=== PATIENT | male | born 1970 | race African-American/Black ===

== ENCOUNTER → 2020-09-04 | Outpatient (CLI) | payer BC ==
--- NOTE | 2020-09-04 14:50 | 2DMMODE ---
[place] [address] 2 D/M-MODE ECHOCARDIOGRAM Name: HORTENCIA SAMUEL Room: [facility]#: [id number] Admission: 09/04/20 Attend Phys: Hebert Murphy MD Discharge: Date of : 68 Date of Service: 09/04/20 1450 Report #: [id number] THIS REPORT FOR: cc: Hebert Murphy MD, Meng MD Holkins, John M. MD [facility] ~ APPROVED REPORT Study performed: 09/04/2020 12:58:01 EXAM: Comprehensive 2D, Doppler, and color-flow Echocardiogram Patient Location: Out-Patient BSA: 1.93 HR: 72 bpm BP: 115/83 mmHg Other Information Study Quality: Good Indications Dyspnea 2D Dimensions IVSd: 10.27 (7-11mm) LVOT Diam: 20.17 (18-24mm) LVDd: 49.11 mm PWd: 9.64 (7-11mm) Ascending Ao: 26.62 (22-36mm) LVDs: 28.09 (25-40mm) Aortic Root: 27.76 mm Volumes Left Atrial Volume (Systole) LA ESV Index: 17.40 mL/m2 Aortic Valve AoV Peak Bandar.: 1.33 m/s AO Peak Gr.: 7.03 mmHg LVOT Max P.08 mmHg AO Mean Gr.: 3.81 mmHg LVOT Mean P.27 mmHg LVOT Max V: 0.88 m/s AO V2 VTI: 24.56 cm LVOT Mean V: 0.51 m/s IDA (VTI): 2.26 cm2 LVOT V1 VTI: 17.35 cm Mitral Valve E/A Ratio: 1.17 [place] [address] 2 D/M-MODE ECHOCARDIOGRAM Name: HORTENCIA SAMUEL Room: [facility]#: [id number] Admission: 09/04/20 Attend Phys: Hebert Murphy MD Discharge: Date of : 68 Date of Service: 09/04/20 1450 Report #: [id number] MV Decel. Time: 176.12 ms MV E Max Bandar.: 0.65 m/s MV PHT: 51.07 ms MVA (PHT): 4.31 cm2 TDI E/Lateral E': 5.42 E/Medial E': 6.50 Medial E' Bandar.: 0.10 m/s Lateral E' Bandar.: 0.12 m/s Pulmonary Valve PV Peak Bandar.: 1.01 m/s PV Peak Gr.: 4.04 mmHg Left Ventricle The left ventricle is normal size. There is normal LV segmental wall motion. There is normal left ventricular wall thickness. Left ventricular systolic function is normal. The left ventricular ejection fraction is within the normal range. LVEF is 55-60%. The left ventricular diastolic function is normal. Right Ventricle The right ventricle is normal size. The right ventricular systolic function is normal. Atria The left atrium size is normal. The right atrium size is normal. Aortic Valve The aortic valve is normal in structure. No aortic regurgitation is present. There is no aortic valvular stenosis. Mitral Valve The mitral valve is normal in structure. There is no mitral valve regurgitation noted. No evidence of mitral valve stenosis. Tricuspid Valve The tricuspid valve is normal in structure. There is no tricuspid valve regurgitation noted. Pulmonic Valve The pulmonary valve is normal in structure. There is no pulmonic valvular regurgitation. Great Vessels The aortic root is normal in size. IVC [place] [address] 2 D/M-MODE ECHOCARDIOGRAM Name: HORTENCIA SAMUEL Room: [facility]#: [id number] Admission: 09/04/20 Attend Phys: Hebert Murphy MD Discharge: Date of : 68 Date of Service: 09/04/20 1450 Report #: [id number] collapses >50% with inspiration. Pericardium There is no pericardial effusion. <Conclusion> The left ventricle is normal size. There is normal left ventricular wall thickness. Left ventricular systolic function is normal. The left ventricular ejection fraction is within the normal range. LVEF is 55-60%. The left ventricular diastolic function is normal. The right ventricle is normal size. The aortic valve is normal in structure. The mitral valve is normal in structure. The tricuspid valve is normal in structure. IVC is normal in size and collapses >50% with inspiration. There is no pericardial effusion. There is normal LV segmental wall motion. <ELECTRONICALLY SIGNED> By: Manoj Bah MD, [facility] 09/04/20 1450 1450 1450 Manoj Bah MD, FACC /INF
== END ==
LOC: M.CRD 12:59
PROVIDERS: ATTEND Internal Medicine
DX: U07.1 COVID-19 (principal); R06.00 Dyspnea, unspecified